=== PATIENT | female | born 1975 | race African-American/Black ===

== ENCOUNTER 2020-10-10 18:18 | Emergency (ER) | payer MEDICAID, OTHER ==
[~2020-10-10] VITALS: Ht 165.1 cm; Wt 70.8 kg
[2020-10-10 21:15] VITALS: BP 132/72
== END 2020-10-10 22:07 | disposition home or self-care (01) ==
LOC: ER 18:23
DX: U07.1 COVID-19 (principal); R06.02 Shortness of breath; R51.9 Headache, unspecified
CPT/HCPCS: 36415; 71045; 87426

== ENCOUNTER 2020-10-14 11:24 | Emergency (ER) | payer MEDICAID ==
[~2020-10-14] VITALS: Ht 167.6 cm; Wt 83.9 kg
[2020-10-14 14:02] VITALS: BP 126/78
== END 2020-10-14 14:04 | disposition home or self-care (01) ==
LOC: ER 11:24
DX: U07.1 COVID-19 (principal); R05 Cough
CPT/HCPCS: 71045